=== PATIENT | male | born 1965 | race Caucasian/White ===

== ENCOUNTER → 2017-09-01 14:37 | Outpatient (CLI) | payer BC, SELFPAY ==
--- NOTE | 2017-09-01 14:51 | XR_ITS ---
XR chest 2V HISTORY: ITS.REASON: RT CHEST PAIN,SHORTNESS OF BREATH ORDERING PHYSICIAN: Antoni Bright PATIENT AGE: 52 years COMPARISON: 08/21/2015 FINDINGS: The cardiomediastinal silhouette and pulmonary vascularity are within normal limits. The lungs are clear without infiltrates, suspicious nodules, or pleural effusions. No acute bony abnormalities. IMPRESSION: Negative chest, no acute finding
[2017-09-01 14:53] LABS: Basophils # 0.1 K/mm3 (0-0.2); Basophils % 0.8 % (0.1-2.0); Eosinophils # 0.4 K/mm3 (0.0-0.4); Eosinophils % 5.5 % (0.1-12.0); Hematocrit 44.1 % (42.0-52.0); Hemoglobin 14.8 g/dL (14.1-18.0); Lymphocytes # 1.9 K/mm3 (0.7-4.5); Lymphocytes % 23.7 K/mm3 (10-50); Mean Corpuscular HGB Conc 33.5 g/dL (31.8-35.4); Mean Corpuscular Hemoglobin 28.2 pg (27.0-31.2); Mean Corpuscular Volume 84.2 fl (80-94); Mean Platelet Volume 7.3 fl (7.4-10.4); Monocytes # 0.5 K/mm3 (0.1-1.0); Monocytes % 6.2 % (1.7-9.3); Neutrophils # 5.1 K/mm3 (1.8-7.8); Neutrophils % 63.9 % (37.0-80.0); Platelet Count 269 K/mm3 (142-424); Red Blood Count 5.24 M/mm3 (4.60-6.20); Red Cell Distribution Width 13.8 % (11.5-17.5); White Blood Count 7.9 K/mm3 (4.8-10.8)
[2017-09-01 15:12] LABS: D-Dimer 243 (0-400)
== END ==
PROVIDERS: PCP Internal Medicine; Visit Provider Internal Medicine
DX: R07.9 Chest pain, unspecified (principal)
CPT/HCPCS: 36415; 71046; 85025; 85378

== ENCOUNTER → 2018-03-09 14:04 | Outpatient (CLI) | payer BC, SELFPAY ==
--- NOTE | 2018-03-09 14:10 | CT_ITS ---
CT abdomen pelvis wo con CLINICAL INDICATION: Right lateral abdominal wall mass ITS.REASON: ABD WALL MASS ORDERING PHYSICIAN: Antoni Bright PATIENT AGE: 53 years COMPARISON: None TECHNIQUE: Axial images obtained with sagittal and coronal reformats. All CT scans at the facility use one or more dose reduction, viz: automated exposure control, ma/kV adjustment per patient size (including targeted exams where dose is matched to indication, i.e. head), or iterative reconstruction technique. PROCEDURE: Oral Contrast: None IV Contrast: None . FINDINGS: A BB is placed over the protrusion in the right lateral abdominal wall. Lung bases are clear. The liver, spleen, adrenal glands, pancreas, and kidneys have an unremarkable unenhanced CT appearance. No renal or ureteral calculi. Gallbladder is contracted with a small stone. No intestinal obstruction or free air. Unremarkable appendix. There is diverticulosis of the sigmoid colon but no evidence of diverticulitis. A small soft tissue density is present in the central pelvic region within the mesenteric fat measuring 12 mm and may be due to small area of fat necrosis. There is a small umbilical hernia containing fat. There is a medium sized left inguinal hernia which appears to represent a direct inguinal hernia. This does contain a loop of the sigmoid colon. There are diverticula within this part of the colon but no evidence of diverticulitis. No evidence of intestinal obstruction. There is mild diffuse bulging of the right lateral abdominal wall laterally best demonstrated on the coronal images slightly more prominent than the left side. However, a abdominal wall defect is not identified. No hernia at this region and no soft tissue mass. No acute bony anomalies. IMPRESSION: 1. Mild diffuse bulging of the right lateral abdominal wall without evidence of herniation or soft tissue mass. 2. Small umbilical hernia and medium-sized left inguinal hernia containing a loop of colon without obstruction. 3. Cholelithiasis
== END ==
PROVIDERS: Family Provider Internal Medicine; PCP Internal Medicine; Visit Provider Internal Medicine
DX: R19.00 Intra-abdominal and pelvic swelling, mass and lump, unspecified site (principal)
CPT/HCPCS: 74176

== ENCOUNTER → 2022-01-20 10:16 | Outpatient (CLI) | payer BC, SELFPAY ==
--- NOTE | 2022-01-20 10:23 | CA_ITS ---
FINAL REPORT TECHNIQUE: Sonographic images of the veins of the right upper extremity were obtained from axilla to antecubital fossa. Additionally, images of the internal jugular vein and subclavian vein were also obtained. CLINICAL HISTORY: Right forearm, redness, warm to touch, firm area. redness and warmth moved to the upper arm since vikki. FINDINGS: The veins of the right upper extremity are compressible from axilla to antecubital fossa. Blood flow is demonstrated by both color and spectral Doppler as well. The internal jugular vein and subclavian vein are also patent. There is a 4.5 cm ovoid hyperechoic area at the area of interest of uncertain etiology. This may represent a complex fluid collection or mass. IMPRESSION: No evidence of venous thrombosis of the upper extremity. 4.5 cm ovoid hyperechoic area at the area of interest of uncertain etiology, may represent a complex fluid collection or mass. Follow-up ultrasound may be helpful. Reviewed, Interpreted and Dictated by Omar Mehta III, MD Transcribed by Fior Bentley Authenticated and [facility]
[2022-01-20 11:33] LABS: Basophils # 0.1 K/mm3 (0-0.2); Basophils % 0.7 % (0.1-2.0); Eosinophils # 0.5 K/mm3 (0.0-0.4); Eosinophils % 7.9 % (0.1-12.0); Hematocrit 44.1 % (42.0-52.0); Hemoglobin 15.3 g/dL (14.1-18.0); Lymphocytes # 1.4 K/mm3 (0.7-4.5); Lymphocytes % 20.8 % (10-50); Mean Corpuscular HGB Conc 34.6 g/dL (31.8-35.4); Mean Corpuscular Hemoglobin 28.8 pg (27.0-31.2); Mean Corpuscular Volume 83.2 fl (80-94); Mean Platelet Volume 7.4 fl (7.4-10.4); Monocytes # 0.6 K/mm3 (0.1-1.0); Monocytes % 9.6 % (1.7-9.3); Neutrophils # 4.1 K/mm3 (1.8-7.8); Platelet Count 230 K/mm3 (142-424); Red Cell Distribution Width 13.5 % (11.5-17.5); White Blood Count 6.7 K/mm3 (4.8-10.8)
[2022-01-20 11:58] LABS: Erythrocyte Sedimentation Rate 22 mm/hr (0-20)
== END ==
PROVIDERS: PCP Internal Medicine; Visit Provider Internal Medicine
DX: M79.601 Pain in right arm (principal); L53.8 Other specified erythematous conditions; R22.31 Localized swelling, mass and lump, right upper limb
CPT/HCPCS: 36415; 85025; 85651; 93971

== ENCOUNTER 2023-06-11 09:43 | Day surgery (SDC) | payer BC, SELFPAY ==
[2023-06-08 14:23] VITALS: BMI 34.7
[2023-06-11 10:03] VITALS: BP 179/86; PULSE 58; RESP 18; TEMP 36.1; O2SAT 96
--- NOTE | 2023-06-11 10:18 | EXP.ANES.CKL ---
[facility] Disclaimer: The information contained in this section may have been updated after the patient was seen, as this information can be updated by other users. Medical History (Updated 06/11/23 @ 10:03 by Samanta Nayak RN) No significant past medical history Surgical History (Updated 06/11/23 @ 10:03 by Samanta Nayak RN) History of hernia surgery Family History (Updated 06/11/23 @ 10:03 by Samanta Nayak RN) Other Family history of hypertension Social History (Updated 06/11/23 @ 10:03 by Samanta Nayak RN) Smoking Status: Never smoker alcohol intake: never substance use type: denies use current occupational status: other Travel in the last 8 weeks: None [facility] [place] Anesthesia Checklist Patient Identification Patient Identification: Arm Band Structural Data Admitted From: Home Planned Operative Procedure/s: EGD Consent for Planned Operative Procedure(s) Verified: Yes Verified Documents: Surgical Consent and History and Physical NPO Status Verified Time NPO: 00:00 Additional verifications Anesthesia Reactions: No Airway Assessment Mallampati Score:: Class II C-Spine Mobility Assessed: Yes TMJ Mobility Assessed: Yes Dentition: Good Dentition Neurological Assessment Level of Consciousness: Awake and Alert Anesthesia Plan Anesthesia Risk discussed: Yes Anesthesia Plan: Verified ASA Class: II Anesthesia Type: MAC
[2023-06-11 10:22] VITALS: O2SAT 96
--- NOTE | 2023-06-11 10:33 | HMH.SCOPE ---
Procedure: Date: 06/11/23 Patient Date of :: 1965 Procedure Performed:: EGD & biopsies & dilation Indications:: Dysphagia Performing Provider:: Mono Bustillo MD Referring Provider:: Antoni Bright MD Sedation:: Propofol Procedure:: The gastroscope was gently passed through the incisoral orifice into the oral cavity and under direct visualization the esophagus was intubated. The endoscope was passed down the esophagus, through the stomach, and into the duodenum. Color, texture, mucosa, and anatomy of the esophagus, stomach, and duodenum were carefully examined with the scope. Findings:: Oropharynx: normal Esophagus: Distal grade A esophagitis, schatzki's ring, biopsied, dilated with 58F bougie EG Junction: intact at 40 cm Cardia: normal Fundus: normal Body: normal Antrum: normal Duodenal bulb: normal Duodenum (second and third portion): normal Impression: Distal esophagitis Dysphagia treated with bougie dilation Specimens:: Esophagus Recommendations:: Repeat dilation in about THREE years or so, sooner if clinically indicated Complications:: None Estimated blood obtained (mL): 0 Colonoscopy Component Colonoscopy Component Was a colonoscopy performed during today's procedure?: No
[2023-06-11 10:35] VITALS: BP 133/74; PULSE 68; RESP 18; O2SAT 92
[2023-06-11 10:45] VITALS: BP 124/79; PULSE 60; RESP 18; O2SAT 92
[2023-06-11 10:54] VITALS: BP 124/71; PULSE 56; RESP 18; O2SAT 95
--- NOTE | 2023-06-11 10:55 | SUR.PHASEII ---
1055- entry documented under initial, entry should be documented for immediate.
[2023-06-11 11:05] VITALS: BP 123/81; PULSE 58; RESP 18; O2SAT 95
--- NOTE | 2023-06-11 11:29 | SUR.PHASEII ---
Dr. Bustillo to bedside to speak with patient at this time.
== END 2023-06-11 11:30 | disposition home or self-care (01) ==
PROVIDERS: PCP Internal Medicine; Visit Provider Internal Medicine Gastroenterology
PROC: 0DJ08ZZ Inspection of Upper Intestinal Tract, Via Natural or Artificial Opening Endoscopic (ICD-10-PCS; CPT 43235; principal; 2023-06-11 11:00)
DX: K20.90 Esophagitis, unspecified without bleeding (principal); R13.10 Dysphagia, unspecified; K22.2 Esophageal obstruction
CPT/HCPCS: 43239; 43248

== ENCOUNTER 2023-06-25 09:47 | Emergency (ER) | payer BC, SELFPAY ==
[2023-06-25 09:48] VITALS: BP 148/78; PULSE 58; RESP 18; TEMP 36.7; O2SAT 95; BMI 34.8
[2023-06-25 09:53] VITALS: BP 149/78; PULSE 56; O2SAT 95
--- NOTE | 2023-06-25 10:17 | XR_ITS ---
FINAL REPORT CLINICAL HISTORY: fall, medial sided left foot pain COMPARISON: None FINDINGS: LEFT FOOT Three views of the left foot demonstrate no definite acute fracture or dislocation. There are osteophytes along the dorsal aspect of the distal talus. The visualized joint spaces are normally aligned. The soft tissues are unremarkable. IMPRESSION: No acute bony abnormality. Reviewed, Interpreted and Dictated by Wily Arreola MD Transcribed by Samanta Ramirez Authenticated and [facility]
--- NOTE | 2023-06-25 10:17 | XR_ITS ---
FINAL REPORT CLINICAL HISTORY: fall, medial left ankle pain COMPARISON: None FINDINGS: LEFT ANKLE Three views demonstrate no definite acute fracture or dislocation. There is a moderate plantar spur. There are osteophytes along the dorsal aspect of the distal talus, best seen on the lateral view. The soft tissues are unremarkable. IMPRESSION: No acute bony abnormality. Reviewed, Interpreted and Dictated by Wily Arreola MD Transcribed by Samanta Ramirez Authenticated and [facility]
--- NOTE | 2023-06-25 10:17 | HMH.EDGENADL ---
Discharge Plan Disposition Patient Disposition: Home, Self-Care Chief Complaint: Extremity Injury, Lower Prescriptions Prescriptions: No Action rabeprazole 20 mg tablet,delayed release (DR/EC) 20 mg PO DAILY Qty: 30 1RF Rx Instructions: Take in morning Referrals Follow up/Referrals: Antoni Bright MD [Primary Care Provider] - See instructions Clinical Impressions Clinical Impression: Foot sprain Qualifiers: Encounter type: initial encounter Laterality: left Qualified Code(s): S93.602A - Unspecified sprain of left foot, initial encounter Discharge ED Provider: Lew Romano General Adult HPI General Chief complaint: Extremity Injury, Lower Stated complaint: [id number], pain in Lt foot Time Seen by Provider: 06/25/23 09:53 Mode of Arrival: Ambulatory Source of Information: Patient Limitations: No Limitations Description of Symptoms (Recalled from ER Triage Doc. by RN): Patient reports falling down steps yesterday and hurting left foot. Patient reports pain 05/19 and reports swelling and tenderness on foot. No noticeable bruising noted. Patient ambulated independently into ER. History of Present Illness HPI narrative: 58-year-old male no relevant medical history presenting with left foot pain. Patient states that 1 day prior to arrival, 06/24, he was walking down the steps holding a vacuum. Slipped, fell down a few steps. Has had immediate pain in his left foot around the sole. Able to bear weight. Bearing weight made easier when he is wearing shoes. No numbness, weakness, tingling. He took 800 mg ibuprofen prior to arrival and that helped relieve the pain mildly, but patient still having significant pain here in the ED. No other trauma sustained. Related Data Previous Rx's Medication Instructions Recorded rabeprazole 20 mg tablet,delayed 20 mg PO DAILY #30 tabs 06/11/23 release Allergies Allergy/AdvReac Type Severity Reaction Status Date / Time Penicillins [PENICILLINS] Allergy Mild Verified 06/11/23 10:00 Iodinated Contrast Media Allergy Verified 06/11/23 10:00 [facility] Disclaimer: The information contained in this section may have been updated after the patient was seen, as this information can be updated by other users. Medical History (Updated 06/25/23 @ 11:53 by Lew Romano MD) No significant past medical history Surgical History (Updated 06/11/23 @ 10:03 by Samanta Nayak RN) History of hernia surgery Family History (Updated 06/11/23 @ 10:03 by Samanta Nayak RN) Other Family history of hypertension Social History (Updated 06/11/23 @ 10:18 by Romie Lamb CRNA) Smoking Status: Never smoker alcohol intake: never substance use type: denies use current occupational status: other Travel in the last 8 weeks: None ROS Obtained: Yes All systems reviewed & no additional complaints except as documented Physical Exam General General appearance: alert and in no apparent distress Respiratory Respiratory exam: Absent respiratory distress Cardiovascular Cardiovascular exam: Present regular rate and normal rhythm Extremities Exam Extremities exam: Present other (Patient with tenderness overlying medial malleolus inferiorly as well as arch of foot. No tenderness at navicular or base of fifth metatarsal. Neurovascular intact.) Neurological Exam Neurological exam: Present alert; Absent normal gait (antalgic, but normal otherwise. ) or motor sensory deficit Medical Decision Making Medical Records Medical records reviewed: Yes I reviewed the patient's medical records. Eliud Inquiry Pt receiving controlled substance: No Eliud was queried for this patient: No Vital Signs: 06/25/23 09:48 06/25/23 09:53 Temperature 98.1 F Temperature Source Oral Pulse Rate 56 L Pulse Rate [Right] 58 L Respiratory Rate 18 Blood Pressure 149/78 H Blood Pressure [Right Arm] 148/78 H Blood Pressure Mean [Right Arm] 101 Blood Pressure Source [Right Arm
[2023-06-25 12:19] VITALS: BP 149/78; PULSE 56; RESP 16; TEMP 36.7
== END 2023-06-25 12:21 | disposition home or self-care (01) ==
PROVIDERS: Emergency Provider Emergency Medicine; PCP Internal Medicine
DX: S93.402A Sprain of unspecified ligament of left ankle, initial encounter (principal); W10.8XXA Fall (on) (from) other stairs and steps, initial encounter
CPT/HCPCS: 73610; 73630; 99283

== ENCOUNTER → 2023-07-13 16:35 | Outpatient (CLI) | payer BC, SELFPAY ==
--- NOTE | 2023-07-13 16:39 | XR_ITS ---
PROCEDURE INFORMATION: Exam: XR Lumbosacral Spine Exam date and time: 07/13/2023 4:51 PM Age: 58 years old Clinical indication: Injury or trauma; Fall; Blunt trauma (contusions or hematomas); Additional info: Lbp post fall down stairs 3 weeks ago TECHNIQUE: Imaging protocol: Radiologic exam of the lumbosacral spine. Views: 4 or 5 views. COMPARISON: ABDPELWO CT abdomen pelvis wo con 03/09/2018 2:20 PM FINDINGS: Bones/joints: There is preservation of vertebral alignment and vertebral body heights. Facet joints are aligned. No acute fracture. No significant central spinal canal stenosis or neural foraminal narrowing at any level. Sacroiliac joints are intact. Soft tissues: Unremarkable. IMPRESSION: No acute fracture. No traumatic subluxation.
== END ==
PROVIDERS: PCP Internal Medicine; Visit Provider Internal Medicine
DX: M54.50 Low back pain, unspecified (principal); W10.8XXA Fall (on) (from) other stairs and steps, initial encounter
CPT/HCPCS: 72110

== ENCOUNTER 2024-07-15 12:41 | Emergency (ER) | payer BC, SELFPAY ==
[2024-07-15 13:17] VITALS: BP 140/87; PULSE 89; RESP 19; TEMP 37.1; O2SAT 96; BMI 33.5
[2024-07-15 13:36] LABS: UTC Strep Screen (Rapid) Negative (Negative)
--- NOTE | 2024-07-15 13:43 | EXP.UTC ---
Discharge Plan Disposition Patient Disposition: Home, Self-Care Condition: Good Prescriptions Prescriptions: New azithromycin [Zithromax] 250 mg tablet 250 mg PO UD DOSE PK Qty: 6 0RF Rx Instructions: Take two (2) tablets today, then one (1) tablet days #2 thru #5 benzonatate 100 mg capsule 100 mg PO TIDP PRN (Reason: Cough) Qty: 30 0RF methylprednisolone 4 mg Tablets,Dose Pack 4 mg PO DIRECTED 6 Days Qty: 21 0RF Rx Instructions: Take 1 pack as directed for 6 days Referrals Follow up/Referrals: Antoni Bright MD [Primary Care Provider] - See instructions Activity Restrictions/Add. Instructions Additional Instructions/Restrictions: Drink plenty of fluids. Take tylenol for pain or fever. Take the medications as directed. Follow up with your regular doctor. GO TO THE ER FOR ANY WORSENING SYMPTOMS Clinical Impressions Clinical Impression: Sinusitis Instructions Patient Instructions: Sinusitis, DI for Sinusitis Print Language Print Language: B[place]ian Discharge ED Provider: Demond Hawley [facility] [place] General Stated complaint: sore throat, cough, congestion Mode of Arrival: Ambulatory Source of Information: Patient Time Seen by Provider: 07/15/24 13:40 Description of Symptoms (Recalled from Triage Doc. by RN): SORE THROAT, COUGH,EAR ACHES, DRAINAGE THICK HEENT Symptoms (Recalled from RN notes): Yes Resp Symptoms (Recalled from RN notes): Yes Skin Symptoms (Recalled from RN notes): No MS Symptoms (Recalled from RN notes): No Functional Status (Recalled from RN notes): WNL Related Data Previous Rx's ?Medication ?Instructions ?Recorded azithromycin 250 mg tablet 250 mg PO UD DOSE PK #6 tabs 07/15/24 (Zithromax) benzonatate 100 mg capsule 100 mg PO TIDP PRN Cough #30 caps 07/15/24 methylprednisolone 4 mg tablets in 4 mg PO DIRECTED 6 days #21 tabs 07/15/24 a dose pack Allergies Allergy/AdvReac Type Severity Reaction Status Date / Time Penicillins (PENICILLINS) Allergy Mild Verified 06/30/24 10:19 Iodinated Contrast Media Allergy Verified 06/30/24 10:19 Worker's Comp Is this a Worker's Comp case?: No [facility] Disclaimer: The information contained in this section may have been updated after the patient was seen, as this information can be updated by other users. Medical History No significant past medical history Surgical History History of hernia surgery Family History Other Family history of hypertension Social History Smoking Status: Never smoker alcohol intake: never substance use type: denies use current occupational status: other Travel in the last 8 weeks: None ROS Obtained: Yes All systems reviewed & no additional complaints except as documented Constitutional Constitutional: Reports poor appetite Eyes Eyes: Reports system reviewed and no additional complaints, except as documented ENT Ears, Nose, Mouth, and Throat: Reports as per HPI Cardiovascular Cardiovascular: Reports system reviewed and no additional complaints, except as documented and Denies chest pain Respiratory Respiratory: Denies shortness of breath, Denies chest congestion, Reports cough, Denies stridor and Denies wheezing Gastrointestinal Gastrointestingal: Reports system reviewed and no additional complaints, except as documented; Denies abdominal pain, diarrhea or vomiting Musculoskeletal Musculoskeletal: Reports system reviewed and no additional complaints, except as documented and Denies arthralgias Integumentary/Breasts Skin/Breast: Reports system reviewed and no additional complaints, except as documented and Denies rash Neurologic Neurologic: Denies paresthesias Allergic/Immunologic Allergic/Immunologic: Denies wheezing Physical Exam General General appearance: alert and in no apparent distress Eye Eye exam: Present normal appearance, PERRL and EOMI ENT ENT exam: Present mucous membranes moist and normal external ear exam Expanded ENT Exam External ear exam: Present normal external inspection TM/Canal exam: Bilateral TM: erythema and bulging Nose exam: Absent sinus tenderness Nasal speculum exam: Bilateral: normal Mouth exam: Present normal external inspection; Absent drooling Teeth exam: Present normal inspection Throat exam: Present tonsillar erythema and tonsillomegaly Neck Neck exam: Present normal inspection, full ROM and trachea midline; Absent tenderness, lymphadenopathy or thyromegaly Chest Chest inspection: Present normal inspection and symmetric chest wall rise; Absent tenderness or rash Respiratory Respiratory exam: Present normal lung sounds bilaterally; Absent respiratory distress, wheezes, stridor or accessory muscle use Cardiovascular Cardiovascular exam: Present regular rate, normal rhythm and normal heart sounds Abdominal Exam Abdominal exam: Present soft; Absent distention, tenderness, guarding, rebound or rigidity Extremities Exam Extremities exam: Present normal inspection, full ROM and normal capillary refill; Absent tenderness or calf tenderness Back Exam Back exam: Present normal inspection and full ROM; Absent tenderness Neurological Exam Neurological exam: Present alert and oriented X3 Psychiatric Psychiatric exam: Present normal affect and normal mood Skin Skin exam: Present warm, dry, intact and normal color Lymphatic Lymphatic Findings: no adenopathy Medical Decision Making Medical Records Medical records reviewed: No I reviewed the patient's medical records. Screening: Per USPSTF and CDC recommendations, given the prevalence of disease in our region, it is our hospital?s policy to screen for HIV and viral Hepatitis for all patients aged 18 and over and those with ongoing risk factors. Eliud Inquiry Pt receiving controlled substance: No Vital Signs: 07/15/24 13:17 Temperature 98.7 F Temperature Source Oral Pulse Rate [Left Radial] 89 Respiratory Rate 19 Blood Pressure [Left Arm] 140/87 Blood Pressure Mean [Left Arm] 104 02 Sat by Pulse Oximetry 96 Lab Data Lab results reviewed: Yes I reviewed the patient's lab results. Lab Results 07/15/24 13:21: Strep Scn Rapid Clinic Negative Orders (Tests/Meds): ORDERS Category Date Time Status Strep Screen Confirmation Stat Micro 07/15/24 13:21 Received
[2024-07-15 14:39] VITALS: BP 140/87; PULSE 89; RESP 19; TEMP 37.1
== END 2024-07-15 14:39 | disposition home or self-care (01) ==
PROVIDERS: Emergency Provider Nurse Practitioner Family; PCP Internal Medicine
DX: J01.90 Acute sinusitis, unspecified (principal)
CPT/HCPCS: 87880; 99213; G0381